=== PATIENT | female | born 1985 | race Two or more races ===

== ENCOUNTER 2023-11-16 05:20 | Emergency (ER) | payer OTHER ==
[~2023-11-16] VITALS: Ht 154.9 cm; Wt 65.3 kg
[2023-11-16] MEDS ORDERED: KETOROLAC TROMETHAMINE 30 MG VIAL IV STA (06:05)
[2023-11-16] MEDS ORDERED: KETOROLAC TROMETHAMINE 30 MG VIAL ONE (06:11)
[2023-11-16 06:58] LABS: HEMATOCRIT 36.6 % (36.0-45.00); HEMOGLOBIN 12.3 g/dL (12.0-15.00); MEAN CELL VOLUME 82.5 fL (80.00-100.00); MEAN CORPUSCULAR HEMOGLOBIN 27.7 pg (27.00-32.0); MEAN CORPUSCULAR HGB CONC 33.5 g/dl (32.0-36.0); PLATELET COUNT 257 K/uL (150-450); RED BLOOD COUNT 4.43 M/uL (4.00-6.00); RED CELL DISTRIBUTION WIDTH 14.6 % (11.5-14.5)
[2023-11-16 08:43] LABS: URINE EPITHELIAL CELLS 22.2 uL (0.0-38.8); URINE RBC 5.3 uL (0.0-20.8); URINE WBC 375.4 uL (0.0-23.2)
[2023-11-16 08:51] LABS: URINE BILIRRUBIN NEGATIVE (NEGATIVE); URINE BLOOD MODERATE; URINE GLUCOSE NEGATIVE (NEGATIVE); URINE KETONE NEGATIVE (NEGATIVE); URINE LEUKOCYTE LARGE; URINE NITRATE POSITIVE; URINE PROTEIN NEGATIVE (NEGATIVE); URINE UROBILINOGEN 0.2 E.U./dl
[2023-11-16 08:53] LABS: URINE APPEARANCE CLEAR; URINE COLOR YELLOW
[2023-11-16 09:04] LABS: URINE BACTERIA > 9821.5 uL (0.0-1933); URINE CAST 0.15 uL (0.0-1.40)
[2023-11-16 09:06] LABS: ANION GAP 8 (10.0-20.0); BLOOD UREA NITROGEN 9 mg/dL (7-18); BUN CREA RATIO 15 (7.0-25.0); CALCIUM 8.5 mg/dL (8.5-10.1); CARBON DIOXIDE 27 mEq/L (21-32); CHLORIDE 107 mmol/L (98-107); CREATININE SERUM 0.62 mg/dL (0.55-1.02); GFR 107.73; GLUCOSE FASTING 102 mg/dL (65-100); OSMOLALITY SERUM 275 MOSM/KG (275-295); POTASSIUM 3.55 mEq/L (3.5-5.1); SODIUM 138 mmol/L (136-145)
[2023-11-16 09:11] LABS: HCG QUANTITATIVE < 1 mUI/mL (1-3)
== END 2023-11-16 10:20 | disposition home or self-care (01) ==
LOC: ER 05:21
PROVIDERS: General Practice
DX: N93.8 Other specified abnormal uterine and vaginal bleeding (principal); N83.201 Unspecified ovarian cyst, right side

== ENCOUNTER 2023-12-04 14:34 | Emergency (ER) | payer OTHER ==
[~2023-12-04] VITALS: Ht 154.9 cm; Wt 65.3 kg
[2023-12-04] MEDS ORDERED: KETOROLAC TROMETHAMINE 60 MG VIAL IM ONE (16:45)
[2023-12-04] MEDS ORDERED: ORPHENADRINE CITRATE 30 MG/ML AMPUL IM ONE (16:45)
[2023-12-04] MEDS ORDERED: KETO10TA2 PO (17:50)
== END 2023-12-04 18:29 | disposition home or self-care (01) ==
LOC: ER 14:36
DX: S93.492A Sprain of other ligament of left ankle, initial encounter (principal); X58.XXXA Exposure to other specified factors, initial encounter; Y93.89 Activity, other specified; Y92.69 Other specified industrial and construction area as the place of occurrence of the external cause; Y99.8 Other external cause status